=== PATIENT | female | born 1970 | race Caucasian/White ===

== ENCOUNTER 2021-02-04 03:00 | Emergency (ER) | payer MEDICARE ==
[~2021-02-04 03:00] MED LIST: "DEPAKOTE \\\"ER\\\"500 MG" PO; ADMELOG100 UNIT/1 SC; ALPRAZOLAM2 MG PO; BACTRIM DS TAB1 EACH PO; BENTYL 20MG TAB20 MG PO; CAL MAG ZINC +1 EACH PO; CARAFATE1 GM PO; CLEOCIN HCL300 MG PO; DEPAKOTE ER250 MG PO; DITROPAN XL10 MG PO; ESOMEPRAZOLE MA40 MG PO; ESTAZOLAM2 MG PO; GEODON80 MG PO; GLUCOPHAGE 500500 MG PO; GLUCOPHAGE500 MG PO; GLUCOTROL 10 MG10 MG PO; GLUCOTROL XL10 MG PO; HUMALOG 10100 UNITS/ SC; HYDROCHLOROTH12.5 MG PO; INVOKANA100 MG PO; JANUVIA100 MG PO; LAMICTAL200 MG PO; LANTUS SOL100 UNIT/1 SQ; LANTUS100 UNIT/1 SQ; LASIX20 MG PO; LOPRESSOR 50 MG50 MG PO; MAGNESIUM GLUCONATE PO; MINIPRESS CAP 11 MG PO; NEURONTIN 400400 MG PO; NEURONTIN400 MG PO; NEXIUM40 MG PO; NORCO 7.5-3251 EACH PO; PEPCID20 MG PO; PHENERGAN 25 MG25 M1 PO; PRINIVIL10 MG PO; PRISTIQ ER100 MG PO; PROTONIX40 MG PO; ROBAXIN 750 MG750 MG PO; TRADJENTA5 MG PO; TRAZODONE HCL100 MG PO; TRICOR 145 MG145 MG PO; TRULICITY1.5 MG/0.5 SC; TYLENOL 325MG325 MG PO; VANCOCIN 125MG/2.5ML IV; VITAMIN B-121000 MCG PO; VITAMIN C1000 MG PO; VITAMIN D21250 MCG PO; VITAMIN D250000 UNIT PO; VRAYLAR PO; ZOFRAN ODT 4 MG4 MG SL; ZOVIRAX 800 MG800 MG PO
[2021-02-04 04:13] LABS: HEMOGLOBIN 12.1 gm/dl (12.3-15.3); RED BLOOD COUNT 4.22 M/UL (4.00-5.10); WHITE BLOOD COUNT 9.8 K/UL (4.5-11.0)
[2021-02-04 04:39] LABS: BUN/CREATININE RATIO 14 (0-10)
== END 2021-02-04 05:10 | disposition home or self-care (01) ==
LOC: ER1 03:00
PROVIDERS: Physician Assistant
DX: J02.9 Acute pharyngitis, unspecified (principal); R06.02 Shortness of breath; E11.9 Type 2 diabetes mellitus without complications; I10 Essential (primary) hypertension; Z79.4 Long term (current) use of insulin; Z20.822 Contact with and (suspected) exposure to COVID-19; Z90.710 Acquired absence of both cervix and uterus; Z90.49 Acquired absence of other specified parts of digestive tract; Z88.0 Allergy status to penicillin
CPT/HCPCS: 0240U; 71045; 80053; 85025; 99285